=== PATIENT | male | born 1965 | race Caucasian/White ===

== ENCOUNTER 2022-09-27 12:14 | Emergency (ER) | payer OTHER, SELFPAY ==
[2022-09-27 12:43] VITALS: BP 111/69; PULSE 82; RESP 18; TEMP 36.8; O2SAT 96; BMI 35.0
--- NOTE | 2022-09-27 14:32 | ED_ITS ---
HPI - General Adult General Time Seen by Provider: 14:33 <Frances Hyman MD - Last Filed: 09/28/22 13:30> Date Seen: 09/27/22 <Frances Hyman MD - Last Filed: 09/28/22 13:30> Chief complaint: Cough <Frances Hyman MD - Last Filed: 09/28/22 13:30> Stated complaint: cough, dizzy, congestion <Frances Hyman MD - Last Filed: 09/28/22 13:30> Time Seen by Provider: 09/27/22 14:32 <Frances Hyman MD - Last Filed: 09/28/22 13:30> Source: patient and RN notes reviewed <Frances Hyman MD - Last Filed: 09/28/22 13:30> Mode of arrival: ambulatory <Frances Hyman MD - Last Filed: 09/28/22 13:30> Limitations: no limitations <Frances Hyman MD - Last Filed: 09/28/22 13:30> History of Present Illness HPI narrative: Vimal is a 57-year-old male coming to the ER from urgent care with shortness of breath that was felt to need more evaluation. He has been sick for over 0 10 days now. Started with respiratory infection. He does have a history of asthma. He states he quit his Singulair and Advair about 2 years ago in has noted he has had more respiratory illness sons then. He did go into urgent care on September 24, was diagnosed with bronchitis and given a Z-Ezequiel and prednisone 40 mg daily for 5 days. He had a negative COVID test at Urgent Care today. Went back because he was still feeling dizzy, not feeling well, feels lightheaded at times, is still coughing. No fevers. No otalgia. They tried a DuoNeb, had a chest x-ray with abnormality right lung base that was favored to be atelectasis over aspiration or pneumonia per the radiologist. The DuoNeb really did not help him at all. It was felt that he might need more evaluation with further imaging. They are interested in having a chest CT done both to look at pneumonia and rule out blood clots. He did reportedly have COVID almost a couple months ago. <Frances Hyman MD - Last Filed: 09/28/22 13:30> Related Data Home medications: Home Medications Medication Instructions Recorded Confirmed atorvastatin 40 mg tablet 40 mg PO DAILY 09/27/22 09/27/22 cetirizine 10 mg tablet 10 mg PO DAILY 09/27/22 09/27/22 cholecalciferol (vitamin D3) 125 125 mcg PO DAILY 09/27/22 09/27/22 mcg (5,000 unit) tablet gabapentin 300 mg capsule 600 mg PO QPM 09/27/22 09/27/22 ipratropium 0.5 mg-albuterol 3 mg ml inhalation Q6H 09/27/22 09/27/22 (2.5 mg base)/3 mL nebulization soln olmesartan 20 mg tablet 20 mg PO DAILY 09/27/22 09/27/22 prazosin 1 mg capsule 1 mg PO QPM 09/27/22 09/27/22 Previous Rx's Medication Instructions Recorded azithromycin 250 mg tablet See Rx Instructions PO .COMPLEX #6 09/24/22 tabs prednisone 20 mg tablet 40 mg PO QDAY 5 days #10 tabs 09/24/22 acetaminophen 300 mg-codeine 30 mg 1 tab PO Q6H PRN pain #20 tabs 09/27/22 tablet benzonatate 100 mg capsule 100 mg PO BID PRN cough #20 caps 09/27/22 doxycycline hyclate 100 mg capsule 100 mg PO BID 10 days #20 caps 09/27/22 <Frances Hyman MD - Last Filed: 09/28/22 13:30> Allergies/adverse reactions: Allergies Allergy/AdvReac Type Severity Reaction Status Date / Time No Known Drug Allergies Allergy Verified 09/27/22 12:45 <Frances Hyman MD - Last Filed: 09/28/22 13:30> Review of Systems Status of ROS: Reports: 6 or more systems reviewed and unremarkable except as noted in History and below <Frances Hyman MD - Last Filed: 09/28/22 13:30> PFSH PFSH Social History: Social History Smoking Status: Never smoker Do you use any of these nicotine containing products: None Second hand tobacco smoke exposure: No How often do you have a drink containing alcohol: never How often do you have six or more drinks on one occasion: Never AUDIT-C Alcohol total score: 0 Non-prescribed substance use: denies use service: No <Frances Hyman MD - Last Filed: 09/28/22 13:30> Exam Const: Vital Signs, click to edit/add: Vital Signs - 24 hr 09/27/22 14:38 Pulse Oximetry 98 <Frances Hyman MD - Last Filed: 09/28/22 13:30> Vital Signs, click to edit/add: Vital Signs - 24 hr 09/27/22 14:38 Pulse Oximetry 98 <Lenny Schmitt MD - Last Filed: 09/27/22 16:37> Documenting provider has reviewed patient's vital signs: yes <Frances Hyman MD - Last Filed: 09/28/22 13:30> General appearance: cooperative <Frances Hyman MD - Last Filed: 09/28/22 13:30> Other: Lying on the exam bed, kept his eyes closed most of the time I was in there. Is coughing quite a bit but in between is able to speak in complete sentences. Voice is normal, not hoarse. Is covered up under the blankets. <Frances Hyman MD - Last Filed: 09/28/22 13:30> HENMT: Common normals: normocephalic, head/scalp atraumatic, hearing grossly normal bilaterally, external ears normal, TM's normal bilaterally, nasal mucous membranes and turbinates normal, moist oral mucous membranes and oropharynx normal <Frances Hyman MD - Last Filed: 09/28/22 13:30> Head and scalp: normocephalic and atraumatic <Frances Hyman MD - Last Filed: 09/28/22 13:30> Nose: nasal mucous membranes and turbinates normal <Frances Hyman MD - Last Filed: 09/28/22 13:30> External ear: external ears normal <Frances Hyman MD - Last Filed: 09/28/22 13:30> Tympanic membrane: TM's normal bilaterally <Frances Hyman MD - Last Filed: 09/28/22 13:30> Eye: Common normals: PERRL, EOMs intact bilaterally, conjunctivae normal and no scleral icterus <Frances Hyman MD - Last Filed: 09/28/22 13:30> Conjunctiva: conjunctiva(e) normal <Frances Hyman MD - Last Filed: 09/28/22 13:30> Pupil: PERRL <Frances Hyman MD - Last Filed: 09/28/22 13:30> Neck & C-Spine: Common normals: full ROM, no lymphadenopathy and supple <Frances Hyman MD - Last Filed: 09/28/22 13:30> Other: Feel no cervical adenopathy or neck masses. Neck is thick, difficult to assess jugular venous distension inpatient is lying more flat on the bed. <Frances Hyman MD - Last Filed: 09/28/22 13:30> Chest: Common normals: inspection of chest normal and palpation of chest normal <Frances Hyman MD - Last Filed: 09/28/22 13:30> Resp: Common normals: normal respiratory effort, no retractions and no use of accessory muscles <Frances Hyman MD - Last Filed: 09/28/22 13:30> Other: Has coarse sound Moose changes at his right base, almost like a rub. No crackles noted, lungs are clear elsewhere. Is certainly do not hear any wheezing. <Frances Hyman MD - Last Filed: 09/28/22 13:30> Cardio: Common normals: regular rate, regular rhythm, S1 normal heart sound, S2 normal heart sound, no gallops, no clicks and no murmurs <Frances Hyman MD - Last Filed: 09/28/22 13:30> Rate: regular rate <Frances Hyman MD - Last Filed: 09/28/22 13:30> Rhythm: regular rhythm <Frances Hyman MD - Last Filed: 09/28/22 13:30> Heart sounds: S1 normal and S2 normal <Frances Hyman MD - Last Filed: 09/28/22 13:30> GI: Common normals: Normal to inspection, nondistended, normoactive bowel sounds present, soft to palpation, non-tender, no hepatosplenomegaly and no masses <Frances Hyman MD - Last Filed: 09/28/22 13:30> Palpation: soft and no hepatosplenomegaly <Frances Hyman MD - Last Filed: 09/28/22 13:30> Extremity: Other: No lower extremity edema, no calf tenderness. <Frances Hyman MD - Last Filed: 09/28/22 13:30> Course Course Hospital Course: Have discussed options with them, they are completely interested in proceeding with chest CT PE protocol which we will do. Eleven monitored on pulse oximetry here to make sure he is not hypoxic. Will get baseline labs. I do wonder if he actually is moved into pneumonia with changes at that right base. This CT will certainly show us if there is pneumonia. <Frances Hyman MD - Last Filed: 09/28/22 13:30> Vital Signs Vital signs: Initial Vital Signs Temperature 98.3 F 09/27/22 12:43 Temperature Source Temporal Artery Scan 09/27/22 12:43 Pulse Rate 82 09/27/22 12:43 Pulse Rhythm 09/27/22 12:43 Pulse Strength 3+ Normal 09/27/22 12:43 Respiratory Rate 18 09/27/22 12:43 Blood Pressure 111/69 09/27/22 12:43 Blood Pressure Mean 83 09/27/22 12:43 Blood Pressure Position Sitting 09/27/22 12:43 Pulse Oximetry 96 09/27/22 12:43 Oxygen Delivery Method 09/27/22 12:43 Vital Signs Temperature 98.3 F 09/27/22 12:43 Pulse Rate 82 09/27/22 12:43 Respiratory Rate 18 09/27/22 12:43 Blood Pressure 111/69 09/27/22 12:43 Pulse Oximetry 96 09/27/22 12:43 Oxygen Delivery Method 09/27/22 12:43 Temperature 98.3 F 09/27/22 12:43 Pulse Rate 82 09/27/22 12:43 Respiratory Rate 18 09/27/22 12:43 Blood Pressure 111/69 09/27/22 12:43 Pulse Oximetry 98 09/27/22 14:38 Oxygen Delivery Method 09/27/22 12:43 <Frances Hyman MD - Last Filed: 09/28/22 13:30> Initial Vital Signs Temperature 98.3 F 09/27/22 12:43 Temperature Source Temporal Artery Scan 09/27/22 12:43 Pulse Rate 82 09/27/22 12:43 Pulse Rhythm 09/27/22 12:43 Pulse Strength 3+ Normal 09/27/22 12:43 Respiratory Rate 18 09/27/22 12:43 Blood Pressure 111/69 09/27/22 12:43 Blood Pressure Mean 83 09/27/22 12:43 Blood Pressure Position Sitting 09/27/22 12:43 Pulse Oximetry 96 09/27/22 12:43 Oxygen Delivery Method 09/27/22 12:43 Vital Signs Temperature 98.3 F 09/27/22 12:43 Pulse Rate 82 09/27/22 12:43 Respiratory Rate 18 09/27/22 12:43 Blood Pressure 111/69 09/27/22 12:43 Pulse Oximetry 96 09/27/22 12:43 Oxygen Delivery Method 09/27/22 12:43 Temperature 98.3 F 09/27/22 12:43 Pulse Rate 82 09/27/22 12:43 Respiratory Rate 18 09/27/22 12:43 Blood Pressure 111/69 09/27/22 12:43 Pulse Oximetry 98 09/27/22 14:38 Oxygen Delivery Method 09/27/22 12:43 <Lenny Schmitt MD - Last Filed: 09/27/22 16:37> Medical Decision Making MDM Narrative Medical decision making narrative: Care for this patient was transferred to mi at the end of Dr. Sandhu's shift. CT imaging of the chest with IV contrast returns with no evidence of pulmonary emboli however there is some patchy infiltrates in the base of the lungs, right greater than left, that is suspicious for infectious or inflammatory etiology. This patient is taking a Z-Ezequiel but would benefit from something more broad-spectrum. He is okay to return home and did received prescriptions for doxycycline and Tylenol 3. He has reassuring vital signs. <Lenny Schmitt MD - Last Filed: 09/27/22 16:37> Lab Data Labs: Lab Results 09/27/22 09/27/22 09/27/22 Range/Units 14:55 14:55 14:55 WBC 4.06 L (4.50-11.00) K/uL RBC 4.55 (4.30-5.90) m/uL Hgb 14.1 (13.5-17.5) gm/dL Hct 42.2 (37.0-53.0) % MCV 93 (80-100) fL MCH 31 (26-34) pg MCHC 33 (32-36) gm/dL RDW Coeff of Gracia 13.0 (11.5-15.5) % Plt Count 133 L (140-440) K/uL Neut % (Auto) 52.5 (42.0-72.0) % Lymph % (Auto) 29.8 (20-44) % Trimble % (Auto) 16.0 H (0.0-11.0) % Eos % (Auto) 1.0 (0.0-7.0) % Baso % (Auto) 0.5 (0.0-3.0) % Neut # (Auto) 2.10 (1.7-7.0) K/uL Lymph # (Auto) 1.20 (0.90-2.90) K/uL Trimble # (Auto) 0.60 (0.00-0.90) K/UL Eos # (Auto) 0.00 (0.00-0.50) K/uL Baso # (Auto) 0.00 (0.00-0.30) K/uL D-Dimer Quant (PE/DVT) 0.30 (0.00-0.50) ug/ml VBG pH (7.32-7.43) VBG pCO2 (40-50) mmHG VBG pO2 (25-47) mmHG VBG HCO3 (21-28) mmol/L Sodium (135-149) mmol/L Potassium (3.6-5.1) mmol/L Chloride (96-114) mmol/L Carbon Dioxide (20-32) mmol/L BUN (7-30) mg/dL Creatinine (0.5-1.5) mg/dL Estimated Creat Clear Estimated GFR ml/min Glucose (60-115) mg/dL Calcium (8.4-10.6) mg/dL Total Bilirubin (0.1-1.5) mg/dL AST (12-35) U/L ALT (4-50) U/L Alkaline Phosphatase (40-150) U/L Troponin I (0.01-0.04) ng/mL C-Reactive Protein Cancelled NT-Pro-B Natriuret Pep pg/mL Total Protein (6.0-8.3) g/dL Albumin (3.3-5.0) g/dL 09/27/22 09/27/22 Range/Units 14:55 14:55 WBC (4.50-11.00) K/uL RBC (4.30-5.90) m/uL Hgb (13.5-17.5) gm/dL Hct (37.0-53.0) % MCV (80-100) fL MCH (26-34) pg MCHC (32-36) gm/dL RDW Coeff of Gracia (11.5-15.5) % Plt Count (140-440) K/uL Neut % (Auto) (42.0-72.0) % Lymph % (Auto) (20-44) % Trimble % (Auto) (0.0-11.0) % Eos % (Auto) (0.0-7.0) % Baso % (Auto) (0.0-3.0) % Neut # (Auto) (1.7-7.0) K/uL Lymph # (Auto) (0.90-2.90) K/uL Trimble # (Auto) (0.00-0.90) K/UL Eos # (Auto) (0.00-0.50) K/uL Baso # (Auto) (0.00-0.30) K/uL D-Dimer Quant (PE/DVT) (0.00-0.50) ug/ml VBG pH 7.393 (7.32-7.43) VBG pCO2 50 (40-50) mmHG VBG pO2 41.0 (25-47) mmHG VBG HCO3 31 H (21-28) mmol/L Sodium 138 (135-149) mmol/L Potassium 3.2 L (3.6-5.1) mmol/L Chloride 103 (96-114) mmol/L Carbon Dioxide 30 (20-32) mmol/L BUN 10 (7-30) mg/dL Creatinine 0.7 (0.5-1.5) mg/dL Estimated Creat Clear 140.83 Estimated GFR 108 ml/min Glucose 92 (60-115) mg/dL Calcium 8.7 (8.4-10.6) mg/dL Total Bilirubin 0.7 (0.1-1.5) mg/dL AST 33 (12-35) U/L ALT 34 (4-50) U/L Alkaline Phosphatase 67 (40-150) U/L Troponin I < 0.01 L (0.01-0.04) ng/mL C-Reactive Protein < 0.5 L NT-Pro-B Natriuret Pep < 20 pg/mL Total Protein 6.2 (6.0-8.3) g/dL Albumin 3.8 (3.3-5.0) g/dL <Frances Hyman MD - Last Filed: 09/28/22 13:30> Lab Results 09/27/22 09/27/22 09/27/22 Range/Units 14:55 14:55 14:55 WBC 4.06 L (4.50-11.00) K/uL RBC 4.55 (4.30-5.90) m/uL Hgb 14.1 (13.5-17.5) gm/dL Hct 42.2 (37.0-53.0) % MCV 93 (80-100) fL MCH 31 (26-34) pg MCHC 33 (32-36) gm/dL RDW Coeff of Gracia 13.0 (11.5-15.5) % Plt Count 133 L (140-440) K/uL Neut % (Auto) 52.5 (42.0-72.0) % Lymph % (Auto) 29.8 (20-44) % Trimble % (Auto) 16.0 H (0.0-11.0) % Eos % (Auto) 1.0 (0.0-7.0) % Baso % (Auto) 0.5 (0.0-3.0) % Neut # (Auto) 2.10 (1.7-7.0) K/uL Lymph # (Auto) 1.20 (0.90-2.90) K/uL Trimble # (Auto) 0.60 (0.00-0.90) K/UL Eos # (Auto) 0.00 (0.00-0.50) K/uL Baso # (Auto) 0.00 (0.00-0.30) K/uL D-Dimer Quant (PE/DVT) 0.30 (0.00-0.50) ug/ml VBG pH (7.32-7.43) VBG pCO2 (40-50) mmHG VBG pO2 (25-47) mmHG VBG HCO3 (21-28) mmol/L Sodium (135-149) mmol/L Potassium (3.6-5.1) mmol/L Chloride (96-114) mmol/L Carbon Dioxide (20-32) mmol/L BUN (7-30) mg/dL Creatinine (0.5-1.5) mg/dL Estimated Creat Clear Estimated GFR ml/min Glucose (60-115) mg/dL Calcium (8.4-10.6) mg/dL Total Bilirubin (0.1-1.5) mg/dL AST (12-35) U/L ALT (4-50) U/L Alkaline Phosphatase (40-150) U/L Troponin I (0.01-0.04) ng/mL C-Reactive Protein Cancelled NT-Pro-B Natriuret Pep pg/mL Total Protein (6.0-8.3) g/dL Albumin (3.3-5.0) g/dL 09/27/22 09/27/22 Range/Units 14:55 14:55 WBC (4.50-11.00) K/uL RBC (4.30-5.90) m/uL Hgb (13.5-17.5) gm/dL Hct (37.0-53.0) % MCV (80-100) fL MCH (26-34) pg MCHC (32-36) gm/dL RDW Coeff of Gracia (11.5-15.5) % Plt Count (140-440) K/uL Neut % (Auto) (42.0-72.0) % Lymph % (Auto) (20-44) % [place]ble % (Auto) (0.0-11.0) % Eos % (Auto) (0.0-7.0) % Baso % (Auto) (0.0-3.0) % Neut # (Auto) (1.7-7.0) K/uL Lymph # (Auto) (0.90-2.90) K/uL Trimble # (Auto) (0.00-0.90) K/UL Eos # (Auto) (0.00-0.50) K/uL Baso # (Auto) (0.00-0.30) K/uL D-Dimer Quant (PE/DVT) (0.00-0.50) ug/ml VBG pH 7.393 (7.32-7.43) VBG pCO2 50 (40-50) mmHG VBG pO2 41.0 (25-47) mmHG VBG HCO3 31 H (21-28) mmol/L Sodium 138 (135-149) mmol/L Potassium 3.2 L (3.6-5.1) mmol/L Chloride 103 (96-114) mmol/L Carbon Dioxide 30 (20-32) mmol/L BUN 10 (7-30) mg/dL Creatinine 0.7 (0.5-1.5) mg/dL Estimated Creat Clear 140.83 Estimated GFR 108 ml/min Glucose 92 (60-115) mg/dL Calcium 8.7 (8.4-10.6) mg/dL Total Bilirubin 0.7 (0.1-1.5) mg/dL AST 33 (12-35) U/L ALT 34 (4-50) U/L Alkaline Phosphatase 67 (40-150) U/L Troponin I < 0.01 L (0.01-0.04) ng/mL C-Reactive Protein < 0.5 L NT-Pro-B Natriuret Pep < 20 pg/mL Total Protein 6.2 (6.0-8.3) g/dL Albumin 3.8 (3.3-5.0) g/dL <Lenny Schmitt MD - Last Filed: 09/27/22 16:37> Imaging Data CT scan - chest: Radiologist's impression: 1. No pulmonary emboli. 2. Diffuse bilateral centrilobular opacities with more patchy consolidation in the right lower lobe. Findings likely infectious or inflammatory. <Lenny Schmitt MD - Last Filed: 09/27/22 16:37> Discharge Plan Discharge Clinical Impression: Pneumonia <Frances Hyman MD - Last Filed: 09/28/22 13:30> Patient Disposition: Home, Self-Care <Frances Hyman MD - Last Filed: 09/28/22 13:30> Condition: Unchanged <Frances Hyman MD - Last Filed: 09/28/22 13:30> Instructions: Community Acquired Pneumonia (ED) <Frances Hyman MD - Last Filed: 09/28/22 13:30> Additional Instructions: Take medication as prescribed and needed. Follow up with MD or return if worsening. <Frances Hyman MD - Last Filed: 09/28/22 13:30> Prescriptions: New doxycycline hyclate 100 mg capsule 100 mg PO BID 10 Days Qty: 20 0RF acetaminophen-codeine 300-30 mg tablet 1 tab PO Q6H PRN (Reason: pain) Qty: 20 0RF benzonatate 100 mg capsule 100 mg PO BID PRN (Reason: cough) Qty: 20 0RF No Action azithromycin 250 mg tablet See Rx Instructions PO .COMPLEX Qty: 6 0RF Rx Instructions: For 250 mg dose pack: take 500 mg today (day 1), then 250 mg for 4 days (days 2-5) PO prednisone 20 mg tablet 40 mg PO QDAY 5 Days Qty: 10 0RF cholecalciferol (vitamin D3) 125 mcg (5,000 unit) tablet 125 mcg PO DAILY gabapentin 300 mg capsule 600 mg PO QPM cetirizine 10 mg tablet 10 mg PO DAILY atorvastatin 40 mg tablet 40 mg PO DAILY olmesartan 20 mg tablet 20 mg PO DAILY prazosin 1 mg capsule 1 mg PO QPM ipratropium-albuterol 0.5 mg-3 mg(2.5 mg base)/3 mL solution for nebulization inhalation Q6H <Frances Hyman MD - Last Filed: 09/28/22 13:30> Follow Up/Referrals: Tosha Bahena, BIOMEDICAL EQUIPMENT SPECIALIST [Nurse Practitioner] - <Frances Hyman MD - Last Filed: 09/28/22 13:30> Stand Alone Forms: MyHealth Info Instructions <Frances Hyman MD - Last Filed: 09/28/22 13:30>
[2022-09-27 14:38] VITALS: O2SAT 98
--- NOTE | 2022-09-27 14:38 | CRLHL7_ITS ---
For Patients: As a result of the Cures Act, medical imaging exams and procedure reports are released immediately into your electronic medical record. You may view this report before your referring provider. If you have questions, please contact your health care provider. Indication: Shortness of breath cough Technique: CT PE Comparison: No comparison Findings: Normal caliber thoracic aorta. No pulmonary emboli. The heart size is normal. Mildly enlarged mediastinal hilar lymph nodes could be reactive. There are calcified nodes. No pleural effusion or pericardial effusion. Diffuse bilateral centrilobular opacities bronchial wall thickening bilaterally mild patchy consolidation in the right lower lobes. Findings likely infectious inflammatory. No suspicious bony lesions. Impression: 1. No pulmonary emboli. 2. Diffuse bilateral centrilobular opacities with more patchy consolidation in the right lower lobe. Findings likely infectious or inflammatory. Please note that all CT scans at this facility use dose modulation, iterative reconstruction, and/or weight-based dosing when appropriate to reduce radiation dose to as low as reasonably achievable. Dictated by Lisa Breen MD @ 09/27/2022 4:16:17 PM (Electronically Signed)
[2022-09-27 15:01] LABS: HCO3 VBG 31 mmol/L (21-28); PCO2 VBG 50 mmHG (40-50); pH VBG 7.393 (7.32-7.43)
[2022-09-27 15:04] LABS: Basophils Percent Auto 0.5 % (0.0-3.0); Hematocrit 42.2 % (37.0-53.0); Hemoglobin* 14.1 gm/dL (13.5-17.5); Immature Granulocytes Pct Auto 0.2 %; Lymphocytes Percent Auto 29.8 % (20-44); Mean Corpuscular HGB Conc 33 gm/dL (32-36); Mean Corpuscular Hemoglobin 31 pg (26-34); Mean Corpuscular Volume 93 fL (80-100); Neutrophils Percent Auto 52.5 % (42.0-72.0); Platelet Count* 133 K/uL (140-440); Red Blood Count 4.55 m/uL (4.30-5.90); Slide Review Reflex No; White Blood Count* 4.06 K/uL (4.50-11.00)
[2022-09-27 15:17] LABS: Albumin* 3.8 g/dL (3.3-5.0); Chloride* 103 mmol/L (96-114)
[2022-09-27 15:18] LABS: Potassium* 3.2 mmol/L (3.6-5.1); Sodium* 138 mmol/L (135-149)
[2022-09-27 15:20] LABS: Creatinine* 0.7 mg/dL (0.5-1.5); Est. Creatinine Clearance* 140.83; Estimated Glomerular Filt Rate 108 ml/min
[2022-09-27 15:21] LABS: Alanine Aminotransferase* 34 U/L (4-50); Alkaline Phosphatase* 67 U/L (40-150); Aspartate Amino Transferase* 33 U/L (12-35); Bilirubin Total* 0.7 mg/dL (0.1-1.5); Blood Urea Nitrogen* 10 mg/dL (7-30); Calcium* 8.7 mg/dL (8.4-10.6); Carbon Dioxide* 30 mmol/L (20-32); Glucose* 92 mg/dL (60-115); Total Protein* 6.2 g/dL (6.0-8.3)
[2022-09-27 15:26] LABS: C Reactive Protein* < 0.5 mg/dL (0.5-1.0)
[2022-09-27 15:32] LABS: NT Pro B Type NatriureticPept* < 20 pg/mL
[2022-09-27 15:37] LABS: Troponin I* < 0.01 ng/mL (0.01-0.04)
== END 2022-09-27 16:51 | disposition home or self-care (01) ==
PROVIDERS: Emergency Provider Family Medicine
DX: J18.9 Pneumonia, unspecified organism (principal)
CPT/HCPCS: 36415; 71260; 80053; 82803; 83880; 84484; 85025; 85379; 86140; 94761; 99284; 99285; Q9967

== ENCOUNTER 2022-12-27 18:58 | Emergency (ER) | payer OTHER, SELFPAY ==
[2022-12-27 19:16] VITALS: BP 118/59; PULSE 96; RESP 18; TEMP 36.7; O2SAT 96; BMI 35.6
[2022-12-27] MEDS: IBUPROFEN 400 MG TABLET 800 MG PO (21:07)
[2022-12-27] MEDS: fentaNYL 100 MCG/2 ML inj IM (21:08)
[2022-12-27] MEDS: LORazepam 2 MG/ML inj 1 MG IM (21:08)
--- NOTE | 2022-12-27 22:15 | ED_ITS ---
HPI - General Adult General Chief complaint: Back Injury/Pain Stated complaint: Lower back pain Time Seen by Provider: 12/27/22 20:34 History of Present Illness HPI narrative: 57-year-old man presenting to the emergency department with complaint of severe burning pain in the right low back. Any movement really seems to hurt. Having trouble sitting up. Spouse who is an RN apparently had noted some knots of muscle in the low back. Does have a history of low back pain but normally gets by. 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 This has been starting to hurt over a couple of days and just really escalated today. He feels this severe pain spreading from his right low back to mid posterior right thigh with near any movement. Does not sound though actually worse with straight leg raise. No pain into the groin. No dysuria frequency urgency. No hematuria. No history of kidney stones. Last took ibuprofen about 6 or 7 hours prior to presentation. Related Data Home Medications Medication Instructions Recorded Confirmed atorvastatin 40 mg tablet 40 mg PO DAILY 09/27/22 09/27/22 cetirizine 10 mg tablet 10 mg PO DAILY 09/27/22 09/27/22 cholecalciferol (vitamin D3) 125 125 mcg PO DAILY 09/27/22 09/27/22 mcg (5,000 unit) tablet gabapentin 300 mg capsule 600 mg PO QPM 09/27/22 09/27/22 ipratropium 0.5 mg-albuterol 3 mg ml inhalation Q6H 09/27/22 09/27/22 (2.5 mg base)/3 mL nebulization soln olmesartan 20 mg tablet 20 mg PO DAILY 09/27/22 09/27/22 prazosin 1 mg capsule 1 mg PO QPM 09/27/22 09/27/22 Previous Rx's Medication Instructions Recorded azithromycin 250 mg tablet See Rx Instructions PO .COMPLEX #6 09/24/22 tabs acetaminophen 300 mg-codeine 30 mg 1 tab PO Q6H PRN pain #20 tabs 09/27/22 tablet benzonatate 100 mg capsule 100 mg PO BID PRN cough #20 caps 09/27/22 doxycycline hyclate 100 mg capsule 100 mg PO BID 10 days #20 caps 09/27/22 Allergies Allergy/AdvReac Type Severity Reaction Status Date / Time No Known Drug Allergies Allergy Verified 09/27/22 12:45 Review of Systems Status of ROS: Reports: 6 or more systems reviewed and unremarkable except as noted in History and below [facility] Social History Smoking Status: Never smoker Do you use any of these nicotine containing products: None Second hand tobacco smoke exposure: No How often do you have a drink containing alcohol: never How often do you have six or more drinks on one occasion: Never AUDIT-C Alcohol total score: 0 Non-prescribed substance use: denies use service: No Exam Narrative: Exam Narrative: Pleasant. Well muscled. Large man. Heavily tattooed over forearms/arms. A clearly very uncomfortable. Seems might be near tears at times. Transition clearly causes pain. Straight leg raise on the right is actually negative. I initially I am not really able to palpate these knots of muscle that had been described. On reexamination later clearly in the right low back he has quite a tense area of muscle/muscle spasm. The pain is not discrete to any SI joint though little sore regionally around the right SI joint. No piriformis pain. No midline back tenderness. Const: Vital Signs, click to edit/add: Vital Signs - 24 hr 12/27/22 19:16 Temperature 98.0 F Pulse Rate [Right Pulse Oximeter] 96 Respiratory Rate 18 Blood Pressure [Ri ght Upper Arm] 118/59 L Pulse Oximetry 96 Oxygen Delivery Me thod Room Air Documenting provider has reviewed patient's vital signs: yes Course Vital Signs Vital signs: Initial Vital Signs Temperature 98.0 F 12/27/22 19:16 Temperature Source Temporal Artery Scan 12/27/22 19:16 Pulse Rate 96 12/27/22 19:16 Respiratory Rate 18 12/27/22 19:16 Blood Pressure 118/59 L 12/27/22 19:16 Blood Pressure Mean 78 12/27/22 19:16 Blood Pressure Position Sitting 12/27/22 19:16 Pulse Oximetry 96 12/27/22 19:16 Oxygen Delivery Method Room Air 12/27/22 19:16 Vital Signs Temperature 98.0 F 12/27/22 19:16 Pulse Rate 96 12/27/22 19:16 Respiratory Rate 18 12/27/22 19:16 Blood Pressure 118/59 L 12/27/22 19:16 Pulse Oximetry 96 12/27/22 19:16 Oxygen Delivery Method Room Air 12/27/22 19:16 Temperature 98.0 F 12/27/22 19:16 Pulse Rate 80 12/27/22 23:25 Respiratory Rate 16 12/27/22 23:25 Blood Pressure 118/62 12/27/22 23:25 Pulse Oximetry 98 12/27/22 23:25 Oxygen Delivery Method Room Air 12/27/22 23:25 Medical Decision Making MDM Narrative Medical decision making narrative: Without a traumatic event not clear that at this point imaging would be necessary. Will try to control pain. Is ordered initially for shot of Dilaudid and lorazepam but due to availability here in the ER switched to fentanyl and lorazepam. On reassessment does not seem as though he feels much different. Do go to sit up and he does acknowledge that had has settled some but he starting to feel it amplifying again. Spouse arrived at this point. Discussed various pain management options. Self-described as a lightweight though seems as though we have not coming very close to managing pain. Clearly has a knot of muscle in the right low back. I have ordered for prednisone Percocet and ibuprofen. Will be reassessing. Wonder if local injection of anesthetic would be helpful. Treatment as above was of limited benefit. Discussed potential benefit local anesthetic injection. Decided to proceed with that. Was injected in a number of areas total approximately 15 mL of 0.25% bupivacaine. Improved on reassessment. See patient discharge plan Discharge Plan Discharge Clinical Impression: Radicular low back pain, Muscle spasm Patient Disposition: Home w/ Parent or Adult Condition: Improved Additional Instructions: Perhaps you had some inflamed facet hear that his recruiting and causing muscle spasm? . It is not clear to me that this is radicular from a disc issue. Consider alternating warm and cold packs to this sore area of the back. It is possible that lidocaine patches, which are available [id number], would be helpful. Might try menthol-containing balms. Ibuprofen up to 800 mg per dose or alternatively up to 500 mg naproxen 2 times daily. Take the prednisone as 60 mg daily for 2 days then 40 mg daily for 3 days then 20 mg daily for 3 days. See handout for stretching ideas. Percocet, prednisone, cyclobenzaprine from [facility]. Prescriptions: No Action azithromycin 250 mg tablet See Rx Instructions PO .COMPLEX Qty: 6 0RF Rx Instructions: For 250 mg dose pack: take 500 mg today (day 1), then 250 mg for 4 days (days 2-5) PO cholecalciferol (vitamin D3) 125 mcg (5,000 unit) tablet 125 mcg PO DAILY gabapentin 300 mg capsule 600 mg PO QPM cetirizine 10 mg tablet 10 mg PO DAILY atorvastatin 40 mg tablet 40 mg PO DAILY olmesartan 20 mg tablet 20 mg PO DAILY prazosin 1 mg capsule 1 mg PO QPM ipratropium-albuterol 0.5 mg-3 mg(2.5 mg base)/3 mL solution for nebulization inhalation Q6H doxycycline hyclate 100 mg capsule 100 mg PO BID 10 Days Qty: 20 0RF acetaminophen-codeine 300-30 mg tablet 1 tab PO Q6H PRN (Reason: pain) Qty: 20 0RF benzonatate 100 mg capsule 100 mg PO BID PRN (Reason: cough) Qty: 20 0RF Follow Up/Referrals: Provider,Not a Local [Primary Care Provider] - Stand Alone Forms: [employer] Info Instructions
[2022-12-27] MEDS: OxyCODONE/APAP 5-325 TABLET 2 TAB PO (22:16)
[2022-12-27] MEDS: predniSONE 20 MG TABLET 60 MG PO (22:16)
[2022-12-27 23:25] VITALS: BP 118/62; PULSE 80; RESP 16; O2SAT 98
[2022-12-27] MEDS: BUPIVACAINE 0.25% 30 ML INJECTION (23:28)
== END 2022-12-27 23:40 | disposition home or self-care (01) ==
PROVIDERS: Emergency Provider Family Medicine
DX: M54.50 Low back pain, unspecified (principal); M62.830 Muscle spasm of back
CPT/HCPCS: 96372; 99283; 99284; A9270; J2060; J3010; J3490; J7512